=== PATIENT | female | born 1990 | race Caucasian/White ===

== ENCOUNTER 2019-05-10 16:44 | Outpatient (REF) | payer OTHER, SELFPAY ==
--- NOTE | 2019-05-10 16:00 | PAPFT_PTH ---
PATIENT: Shweta Adames LOC: [facility]#:[id number] AGE/SX: 28/F ROOM: RE05/10/[address]: Ramandeep Ansari : 1990 BED: DIS: 05/10/2019 SPEC #: [id number] RECD: 05/11/19 12:24 STATUS: DOMINIQUE REConnor #: [id number] ADI: 05/10/19 16:[address]: Ramandeep Ansari DEPT: [facility] Cytology RECD BY: Monie Mendez ENTERED: 05/11/19 12:24 SP TYPE: PAPFT OTHR DR: Dany Ramirez Tissues: 1 - CX/ENDOCX FOR PAP SMEARS Procedures: PAP THIN PREP/UVM Screening HPV DNA PROBE Comments: [id number]
== END 2019-05-10 17:04 ==
LOC: NCHCN 16:44
PROVIDERS: PCP Internal Medicine; Visit Provider Registered Nurse
DX: Z12.4 Encounter for screening for malignant neoplasm of cervix (principal); Z11.51 Encounter for screening for human papillomavirus (HPV)
CPT/HCPCS: 88142; 87624

== ENCOUNTER 2019-05-27 09:29 | Outpatient (REF) | payer OTHER, SELFPAY ==
[2019-05-31 14:19] LABS: Chlamydia Result Negative; GC Result Negative; Specimen Description URINE
== END 2019-05-27 09:49 ==
LOC: NCHCN 09:29
PROVIDERS: PCP Internal Medicine; Visit Provider Nurse Practitioner Family
DX: Z11.3 Encounter for screening for infections with a predominantly sexual mode of transmission (principal)
CPT/HCPCS: 87491; 87591

== ENCOUNTER 2019-05-27 13:14 | Outpatient (CLI) | payer OTHER, SELFPAY ==
--- NOTE | 2019-05-27 14:30 | DI.US_ITS ---
SYMPTOMS/DIAGNOSIS: CONTRACEPTIVE SURVEILLANCE, INTRAUTERINE DEVICE, Z30.431, DIFFICULT INTRAUTERINE DEVICE INSERTION, ? PROPER PLACEMENT AT FUNDUS PELVIC ULTRASOUND: Pelvic ultrasound was performed transabdominally and transvaginally. The patient has reportedly had recent placement of an IUD. The IUD lies in the endometrial cavity. There is a small quantity of free fluid in the endometrial cavity as well. The ovaries have a normal follicular appearance. No free fluid identified in the cul-de-sac. Limited scanning of the kidneys is unremarkable. CONCLUSION: IUD in place in the endometrial cavity.
== END 2019-05-27 13:34 ==
PROVIDERS: PCP Internal Medicine; Visit Provider Nurse Practitioner Family
DX: Z30.431 Encounter for routine checking of intrauterine contraceptive device (principal)
CPT/HCPCS: 76830; 76856

== ENCOUNTER 2021-05-10 22:12 | Outpatient (REF) | payer OTHER, SELFPAY ==
[2021-05-14 15:53] LABS: Chlamydia Result Negative (Negative); GC Result Negative (Negative)
== END 2021-05-10 22:13 | disposition home or self-care (01) ==
LOC: NCHCN 22:12
PROVIDERS: PCP Internal Medicine; Visit Provider Registered Nurse
DX: Z11.3 Encounter for screening for infections with a predominantly sexual mode of transmission (principal)
CPT/HCPCS: 87491; 87591